=== PATIENT | male | born 2000 | race Hispanic/Latino ===

== ENCOUNTER 2021-04-19 20:43 | Emergency (ER) | payer SELFPAY ==
[2021-04-19] MEDS ORDERED: Proparacaine 0.5% Opth 15 ML BOT ONE ×2 (21:13→21:14)
[2021-04-19] MEDS ORDERED: Fluorescein Opthalmic Strip ONE ×2 (21:13→21:41)
== END 2021-04-19 22:11 | disposition home or self-care (01) ==
LOC: ERS 20:43
DX: T15.92XA Foreign body on external eye, part unspecified, left eye, initial encounter (principal); W45.8XXA Other foreign body or object entering through skin, initial encounter
CPT/HCPCS: 65222